=== PATIENT | female | born 1975 | race Caucasian/White ===

== ENCOUNTER 2017-01-12 09:37 | Emergency (ER) | payer OTHER ==
[~2017-01-12] VITALS: Ht 165.1 cm; Wt 60.1 kg
[2017-01-12 10:31] LABS: BASOPHIL COUNT 0.1 K/uL (0-0.1); EOSINOPHIL (%) 4.3 % (0-5); EOSINOPHIL COUNT 0.2 K/uL (0-0.3); HEMATOCRIT 38.1 % (36.0-46.0); IMMATURE GRANULOCYTE (%) 0.2 % (0.0-0.7); INSTRUMENT ABS NEUTROPHIL CT 2.5 K/uL; LYMPHOCYTE COUNT 1.5 K/uL (1.0-2.8); MCH 31.5 PG (29.0-34.0); MCHC 33.3 G/DL (30.0-36.0); MCV 94.5 FL (83-99); MEAN PLAT.VOLUME 9.2 uM^3 (9.5-12.4); MONOCYTE (%) 8.9 % (3-12); MONOCYTE COUNT 0.4 K/uL (0-0.8); NEUTROPHIL (%) 53.4 % (45-76); NEUTROPHIL COUNT 2.5 K/uL (1.8-6.4); PLATELET COUNT 242 K/uL (156-360); RBC DIS.WIDTH-CV 12.2 % (11.8-14.6); RBC DIS.WIDTH-SD 42.5 % (39-53); RED BLOOD COUNT 4.03 M/uL (3.80-5.20); WHITE BLOOD COUNT 4.6 K/uL (4.1-10.2)
[2017-01-12 10:39] LABS: CHLORIDE 107 mEq/L (99-109); POTASSIUM 4.3 mEq/L (3.7-5.4); SODIUM 139 mEq/L (136-147)
[2017-01-12 10:41] LABS: GLUCOSE 94 mg/dL (70-99)
[2017-01-12 10:43] LABS: ANION GAP 8 MEQ/L (2-14); TOTAL BILIRUBIN 0.5 mg/dL (0.0-1.0)
[2017-01-12 10:45] LABS: ALKALINE PHOSPHATASE 56 IU/L (3-129)
[2017-01-12 10:46] LABS: UREA NITROGEN (BUN) 11 mg/dL (9-23)
[2017-01-12 10:52] LABS: GFR ESTIMATE (CALCULATED) > 59 mL/min/
[2017-01-12 11:11] LABS: ADD MIUA? YES; BILIRUBIN NEGATIVE; BLOOD NEGATIVE; COLOR LT YELLOW ((YELLOW)); GLUCOSE (STRIP) NEGATIVE; KETONES NEGATIVE; LEUKOCYTES NEGATIVE; NITRITE NEGATIVE; PROTEIN (STRIP) NEGATIVE; SPECIFIC GRAVITY 1.004 (1.000-1.030); UROBILINOGEN 0.2 MG/DL (0.2-1.0)
[2017-01-12 11:25] LABS: BACTERIA 2+ /HPF; EPITHELIAL CELLS 2+ /HPF; MUCUS TRACE /LPF; UCUL ADDED? YES
[2017-01-12] MEDS ORDERED: CIPRO500 MG PO (13:59)
[2017-01-12 14:08] VITALS: BP 118/75
== END 2017-01-12 14:09 | disposition home or self-care (01) ==
LOC: EME 09:37 → EDBD 09:37 → EME 14:09
PROVIDERS: Emergency Medicine
DX: N39.0 Urinary tract infection, site not specified (principal); R42 Dizziness and giddiness; F17.200 Nicotine dependence, unspecified, uncomplicated; Z88.6 Allergy status to analgesic agent
CPT/HCPCS: 70450; 71010; 80053; 81003; 85025; 87077; 87086; 87186; 93005; 99281; 99285; J1885; J2405; J7030

== ENCOUNTER 2017-05-29 08:21 | Emergency (ER) | payer OTHER ==
[~2017-05-29] VITALS: Ht 165.1 cm; Wt 57.4 kg
[~2017-05-29 08:21] MED LIST: CIPRO500 MG PO
[2017-05-29] MEDS ORDERED: TOPAMAX50 MG PO (08:55)
[2017-05-29 09:05] LABS: HEMATOCRIT 36.8 % (36.0-46.0); HEMOGLOBIN 12.5 G/DL (11.9-15.5); MCH 31.6 PG (29.0-34.0); MCV 92.9 FL (83-99); PLATELET COUNT 223 K/uL (156-360); RBC DIS.WIDTH-CV 12.1 % (11.8-14.6); RED BLOOD COUNT 3.96 M/uL (3.80-5.20); WHITE BLOOD COUNT 5.6 K/uL (4.1-10.2)
[2017-05-29 09:14] LABS: D-DIMER ELISA < 150.00 ng/mLDDU (<230)
[2017-05-29 09:14] LABS: CHLORIDE 105 mEq/L (99-109); POTASSIUM 3.8 mEq/L (3.7-5.4); SODIUM 136 mEq/L (136-147)
[2017-05-29 09:16] LABS: GLUCOSE 101 mg/dL (70-99)
[2017-05-29 09:20] LABS: CREATININE 0.7 mg/dL (0.6-1.3); GFR ESTIMATE (CALCULATED) > 59 mL/min/
[2017-05-29 09:21] LABS: UREA NITROGEN (BUN) 20 mg/dL (9-23)
[2017-05-29 09:26] LABS: TROP-I INTERPRETATION NEGATIVE; TROPONIN-I < 0.01 ng/mL (0.0-0.30)
[2017-05-29] MEDS ORDERED: ULTRAM50 MG PO (12:47)
[2017-05-29 12:53] VITALS: BP 95/60
== END 2017-05-29 13:11 | disposition home or self-care (01) ==
LOC: EME 08:21
PROVIDERS: Emergency Medicine
DX: G62.9 Polyneuropathy, unspecified (principal); R07.89 Other chest pain; F17.200 Nicotine dependence, unspecified, uncomplicated; R56.9 Unspecified convulsions; Z88.5 Allergy status to narcotic agent; Z88.6 Allergy status to analgesic agent; Z90.710 Acquired absence of both cervix and uterus
CPT/HCPCS: 71046; 80048; 84484; 85027; 85379; 93005; 99281; 99284

== ENCOUNTER 2017-06-22 09:49 | Emergency (ER) | payer OTHER ==
[~2017-06-22] VITALS: Ht 165.1 cm; Wt 53.7 kg
[~2017-06-22 09:49] MED LIST changes: +TOPAMAX50 MG PO; +ULTRAM50 MG PO
[2017-06-22 12:49] LABS: HEMATOCRIT 39.5 % (36.0-46.0); HEMOGLOBIN 13.7 G/DL (11.9-15.5); MCH 31.3 PG (29.0-34.0); MCHC 34.7 G/DL (30.0-36.0); MCV 90.2 FL (83-99); RBC DIS.WIDTH-CV 12.3 % (11.8-14.6); RBC DIS.WIDTH-SD 41.1 % (39-53); RED BLOOD COUNT 4.38 M/uL (3.80-5.20); WHITE BLOOD COUNT 3.9 K/uL (4.1-10.2)
[2017-06-22 12:56] LABS: CHLORIDE 103 mEq/L (99-109); POTASSIUM 3.6 mEq/L (3.7-5.4); SODIUM 138 mEq/L (136-147)
[2017-06-22 12:58] LABS: GLUCOSE 79 mg/dL (70-99)
[2017-06-22 13:02] LABS: CREATININE 0.7 mg/dL (0.6-1.3); GFR ESTIMATE (CALCULATED) > 59 mL/min/
[2017-06-22 13:03] LABS: UREA NITROGEN (BUN) 23 mg/dL (9-23)
[2017-06-22 13:55] LABS: PLAT.SUFFICIENCY ADEQUATE
[2017-06-22 13:56] LABS: PLATELET COUNT 136 K/uL (156-360)
[2017-06-22] MEDS ORDERED: PREDNISONE50 MG PO (13:56)
[2017-06-22] MEDS ORDERED: ZITHROMAX Z-PA250 MG PO (13:56)
[2017-06-22] MEDS ORDERED: TOPAMAX50 MG PO (13:56)
[2017-06-22] MEDS ORDERED: ZOFRAN ODT8 MG PO (13:56)
[2017-06-22 14:14] VITALS: BP 129/71
== END 2017-06-22 14:15 | disposition home or self-care (01) ==
LOC: EME 09:49
PROVIDERS: Physician Assistant
DX: B34.9 Viral infection, unspecified (principal); Z76.0 Encounter for issue of repeat prescription; G43.909 Migraine, unspecified, not intractable, without status migrainosus; Z72.0 Tobacco use; Z88.5 Allergy status to narcotic agent; Z88.6 Allergy status to analgesic agent
CPT/HCPCS: 71046; 80048; 85027; 94640; 99281; 99284; J1100; J1885; J7030

== ENCOUNTER 2017-11-15 08:54 | Inpatient (IN) | payer OTHER ==
[~2017-11-15] VITALS: Ht 165.1 cm; Wt 58.1 kg
[~2017-11-15 08:54] MED LIST changes: +PREDNISONE50 MG PO; +ZITHROMAX Z-PA250 MG PO; +ZOFRAN ODT8 MG PO
[2017-11-15 09:27] LABS: HEMATOCRIT 37.3 % (36.0-46.0); HEMOGLOBIN 12.9 G/DL (11.9-15.5); MCH 32.3 PG (29.0-34.0); MCHC 34.6 G/DL (30.0-36.0); MCV 93.3 FL (83-99); PLATELET COUNT 247 K/uL (156-360); RBC DIS.WIDTH-CV 11.9 % (11.8-14.6); RBC DIS.WIDTH-SD 41.3 % (39-53); WHITE BLOOD COUNT 7.7 K/uL (4.1-10.2)
[2017-11-15 09:38] LABS: ALBUMIN 4.6 g/dL (3.2-4.8); CHLORIDE 100 mEq/L (99-109); POTASSIUM 4.2 mEq/L (3.7-5.4); SODIUM 137 mEq/L (136-147)
[2017-11-15 09:40] LABS: GLUCOSE 108 mg/dL (70-99)
[2017-11-15 09:41] LABS: TOTAL PROTEIN 7.2 g/dL (6.4-8.3)
[2017-11-15 09:42] LABS: TOTAL BILIRUBIN 0.7 mg/dL (0.0-1.0)
[2017-11-15 09:44] LABS: ALKALINE PHOSPHATASE 59 IU/L (3-129); CREATININE 0.8 mg/dL (0.6-1.3); GFR ESTIMATE (CALCULATED) > 59 mL/min/
[2017-11-15 09:45] LABS: UREA NITROGEN (BUN) 19 mg/dL (9-23)
[2017-11-15 09:46] LABS: AST (GOT) 10 IU/L (2-34)
[2017-11-15 09:47] LABS: ALT (GPT) 7 IU/L (3-49); LIPASE 5 U/L (1.0-51.0)
[2017-11-15 09:53] LABS: QUANTITATIVE HCG < 4.0 MIU/ML
[2017-11-15 10:27] LABS: APPEARANCE CLEAR ((CLEAR)); BILIRUBIN NEGATIVE; BLOOD NEGATIVE; COLOR YELLOW ((YELLOW)); GLUCOSE (STRIP) NEGATIVE; KETONES NEGATIVE; LEUKOCYTES NEGATIVE; NITRITE NEGATIVE; PROTEIN (STRIP) NEGATIVE; SPECIFIC GRAVITY 1.008 (1.000-1.030); UCUL ADDED? NO; UROBILINOGEN 0.2 MG/DL (0.2-1.0)
[2017-11-15] MEDS ORDERED: MENOPAUSE SUPPO20 MG PO (15:25)
[2017-11-15] MEDS ORDERED: DIVALPROEX SOD250 MG PO (15:25)
[2017-11-15] MEDS ORDERED: B-12 COMPL1000 MCG/1 SC (15:26)
[2017-11-15] MEDS ORDERED: ERGOCALCIF50000 UNIT PO (15:27)
[2017-11-15] MEDS ORDERED: CYANOCOBALAM1000 MCG PO (15:28)
[2017-11-15] MEDS ORDERED: RIZATRIPTAN10 M1 PO (15:28)
[2017-11-15] MEDS ORDERED: ADVIL,NUPRIN,M200 MG PO (15:29)
[2017-11-15 16:25] VITALS: BP 96/53
[2017-11-15 19:14] VITALS: BP 84/53
[2017-11-15 23:20] VITALS: BP 97/54
[2017-11-16 05:45] LABS: HEMATOCRIT 34.7 % (36.0-46.0); HEMOGLOBIN 11.6 G/DL (11.9-15.5); MCH 31.4 PG (29.0-34.0); MCHC 33.4 G/DL (30.0-36.0); PLATELET COUNT 218 K/uL (156-360); RBC DIS.WIDTH-CV 11.9 % (11.8-14.6); RED BLOOD COUNT 3.69 M/uL (3.80-5.20); WHITE BLOOD COUNT 4.6 K/uL (4.1-10.2)
[2017-11-16 06:44] LABS: ALBUMIN 3.7 G/DL (3.2-4.8); ALKALINE PHOSPHATASE 39 IU/L (3-129); ALT (GPT) 6 IU/L (3-49); AST (GOT) 9 IU/L (2-34); CHLORIDE 110 MEQ/L (99-109); CREATININE 0.7 MG/DL (0.6-1.3); GFR ESTIMATE (CALCULATED) > 59 mL/min/; GLUCOSE 96 mg/dL (70-99); SODIUM 141 MEQ/L (136-147); TOTAL BILIRUBIN 0.6 MG/DL (0.0-1.0); TOTAL PROTEIN 5.4 G/DL (6.4-8.3); UREA NITROGEN (BUN) 11 mg/dL (9-23)
[2017-11-16 08:00] VITALS: BP 93/65
[2017-11-16 12:00] VITALS: BP 106/74
[2017-11-16 16:15] VITALS: BP 112/87
[2017-11-16 19:00] VITALS: BP 92/50
[2017-11-17] VITALS (7 sets, daily range): BP systolic 80–107; BP diastolic 43–55
[2017-11-17 05:24] LABS: HEMATOCRIT 34.4 % (36.0-46.0); HEMOGLOBIN 11.3 G/DL (11.9-15.5); MCH 31.2 PG (29.0-34.0); MCHC 32.8 G/DL (30.0-36.0); PLATELET COUNT 225 K/uL (156-360); RBC DIS.WIDTH-CV 11.8 % (11.8-14.6); RBC DIS.WIDTH-SD 41.2 % (39-53); RED BLOOD COUNT 3.62 M/uL (3.80-5.20); WHITE BLOOD COUNT 5.9 K/uL (4.1-10.2)
[2017-11-17 06:39] LABS: CHLORIDE 111 MEQ/L (99-109); CREATININE 0.8 MG/DL (0.6-1.3); GFR ESTIMATE (CALCULATED) > 59 mL/min/; GLUCOSE 94 mg/dL (70-99); POTASSIUM 4.4 MEQ/L (3.7-5.4); SODIUM 141 MEQ/L (136-147); UREA NITROGEN (BUN) 10 mg/dL (9-23)
[2017-11-18 00:23] VITALS: BP 84/50
[2017-11-18 03:54] VITALS: BP 93/60
[2017-11-18 05:35] LABS: HEMATOCRIT 32.1 % (36.0-46.0); HEMOGLOBIN 10.7 G/DL (11.9-15.5); MCH 31.2 PG (29.0-34.0); MCHC 33.3 G/DL (30.0-36.0); MCV 93.6 FL (83-99); PLATELET COUNT 225 K/uL (156-360); RBC DIS.WIDTH-CV 11.7 % (11.8-14.6); RED BLOOD COUNT 3.43 M/uL (3.80-5.20); WHITE BLOOD COUNT 4.9 K/uL (4.1-10.2)
[2017-11-18 05:53] LABS: CHLORIDE 112 MEQ/L (99-109); CREATININE 0.8 MG/DL (0.6-1.3); GFR ESTIMATE (CALCULATED) > 59 mL/min/; GLUCOSE 102 mg/dL (70-99); POTASSIUM 4.1 MEQ/L (3.7-5.4); SODIUM 141 MEQ/L (136-147); UREA NITROGEN (BUN) 11 mg/dL (9-23)
[2017-11-18 11:09] VITALS: BP 104/57
[2017-11-18 16:09] VITALS: BP 81/52
[2017-11-18 19:49] VITALS: BP 92/50
[2017-11-19 00:24] VITALS: BP 86/47
[2017-11-19 04:36] VITALS: BP 83/47
[2017-11-19 06:16] LABS: BASOPHIL (%) 0.8 % (0-1); BASOPHIL COUNT 0.1 K/uL (0-0.1); EOSINOPHIL (%) 4.5 % (0-5); EOSINOPHIL COUNT 0.3 K/uL (0-0.3); HEMATOCRIT 33.5 % (36.0-46.0); HEMOGLOBIN 11.3 G/DL (11.9-15.5); IMMATURE GRANULOCYTE (%) 0.3 % (0.0-0.7); LYMPHOCYTE (%) 23.6 % (15-42); LYMPHOCYTE COUNT 1.4 K/uL (1.0-2.8); MCH 31.2 PG (29.0-34.0); MCHC 33.7 G/DL (30.0-36.0); MCV 92.5 FL (83-99); MONOCYTE (%) 10.3 % (3-12); MONOCYTE COUNT 0.6 K/uL (0-0.8); NEUTROPHIL (%) 60.5 % (45-76); NEUTROPHIL COUNT 3.6 K/uL (1.8-6.4); PLATELET COUNT 246 K/uL (156-360); RBC DIS.WIDTH-CV 11.9 % (11.8-14.6); RBC DIS.WIDTH-SD 40.6 % (39-53); RED BLOOD COUNT 3.62 M/uL (3.80-5.20)
[2017-11-19 06:36] LABS: ALBUMIN 3.5 G/DL (3.2-4.8); CHLORIDE 113 MEQ/L (99-109); CREATININE 0.8 MG/DL (0.6-1.3); GFR ESTIMATE (CALCULATED) > 59 mL/min/; GLUCOSE 106 mg/dL (70-99); PHOSPHORUS 3.5 mg/dL (2.5-4.9); POTASSIUM 3.7 MEQ/L (3.7-5.4); SODIUM 140 MEQ/L (136-147); UREA NITROGEN (BUN) 9 mg/dL (9-23)
[2017-11-19 07:00] VITALS: BP 83/53
[2017-11-19 12:43] VITALS: BP 96/56
[2017-11-19 15:21] VITALS: BP 80/43
[2017-11-19 21:55] VITALS: BP 93/58
[2017-11-20 05:05] LABS: HEMATOCRIT 32.5 % (36.0-46.0); HEMOGLOBIN 11.2 G/DL (11.9-15.5); MCH 32.2 PG (29.0-34.0); MCHC 34.5 G/DL (30.0-36.0); MCV 93.4 FL (83-99); PLATELET COUNT 206 K/uL (156-360); RBC DIS.WIDTH-CV 11.9 % (11.8-14.6); RBC DIS.WIDTH-SD 41.1 % (39-53); RED BLOOD COUNT 3.48 M/uL (3.80-5.20); WHITE BLOOD COUNT 5.6 K/uL (4.1-10.2)
[2017-11-20 05:54] LABS: ALBUMIN 3.5 G/DL (3.2-4.8); CHLORIDE 110 MEQ/L (99-109); CREATININE 0.8 MG/DL (0.6-1.3); GFR ESTIMATE (CALCULATED) > 59 mL/min/; GLUCOSE 96 mg/dL (70-99); PHOSPHORUS 3.5 mg/dL (2.5-4.9); SODIUM 142 MEQ/L (136-147); UREA NITROGEN (BUN) 9 mg/dL (9-23)
[2017-11-20 09:45] VITALS: BP 101/65
[2017-11-20 11:55] VITALS: BP 95/56
[2017-11-20 15:25] VITALS: BP 107/54
[2017-11-20 20:47] VITALS: BP 101/59
[2017-11-20] MEDS ORDERED: POLYETHYLENE GL17 GM PO (21:18)
[2017-11-20] MEDS ORDERED: CIPRO250 MG PO (21:20)
[2017-11-20] MEDS ORDERED: PANTOPRAZOLE SO40 MG PO (21:21)
[2017-11-20 23:55] VITALS: BP 86/47
[2017-11-21 03:15] VITALS: BP 96/61
[2017-11-21 05:09] LABS: HEMATOCRIT 32.8 % (36.0-46.0); HEMOGLOBIN 11.1 G/DL (11.9-15.5); MCH 31.3 PG (29.0-34.0); MCHC 33.8 G/DL (30.0-36.0); MCV 92.4 FL (83-99); PLATELET COUNT 235 K/uL (156-360); RBC DIS.WIDTH-CV 11.9 % (11.8-14.6); RBC DIS.WIDTH-SD 40.7 % (39-53); RED BLOOD COUNT 3.55 M/uL (3.80-5.20); WHITE BLOOD COUNT 5.4 K/uL (4.1-10.2)
[2017-11-21 16:55] VITALS: BP 101/78
== END 2017-11-21 19:15 | disposition home or self-care (01) | DRG 392 ==
LOC: EME 08:54 → 4SOUTH 14:55 → EDOF 14:55 → ENRESERV 15:08 → 4SOUTH 16:21
PROVIDERS: Emergency Medicine; Hospitalist; Internal Medicine Gastroenterology; Physician Assistant Medical
PROC: 0DB68ZX Excision of Stomach, Via Natural or Artificial Opening Endoscopic, Diagnostic (ICD-10-PCS; principal; 2017-11-20)
DX: K57.32 Diverticulitis of large intestine without perforation or abscess without bleeding (principal); K29.60 Other gastritis without bleeding; G62.9 Polyneuropathy, unspecified; G40.A09 Absence epileptic syndrome, not intractable, without status epilepticus; F17.210 Nicotine dependence, cigarettes, uncomplicated; K44.9 Diaphragmatic hernia without obstruction or gangrene; D64.9 Anemia, unspecified; K21.9 Gastro-esophageal reflux disease without esophagitis; Z87.11 Personal history of peptic ulcer disease; Z90.710 Acquired absence of both cervix and uterus
CPT/HCPCS: 74177; 80048; 80053; 80069; 81003; 83690; 84702; 85025; 85027; 88305; 88342 TC; 99281; 99284; C9113; G0378; J0744; J1885; J2250; J2270; J2405; J7030; J7040; J7120; S0028; S0030

== ENCOUNTER 2017-12-11 13:23 | Emergency (ER) | payer OTHER ==
[~2017-12-11] VITALS: Ht 165.1 cm; Wt 57.7 kg
[~2017-12-11 13:23] MED LIST changes: +ADVIL,NUPRIN,M200 MG PO; +B-12 COMPL1000 MCG/1 SC; +CIPRO250 MG PO; +CYANOCOBALAM1000 MCG PO; +DIVALPROEX SOD250 MG PO; +ERGOCALCIF50000 UNIT PO; +MENOPAUSE SUPPO20 MG PO; +PANTOPRAZOLE SO40 MG PO; +POLYETHYLENE GL17 GM PO; +RIZATRIPTAN10 M1 PO
[2017-12-11 14:04] LABS: HEMATOCRIT 36.5 % (36.0-46.0); HEMOGLOBIN 12.8 G/DL (11.9-15.5); MCH 32.7 PG (29.0-34.0); MCHC 35.1 G/DL (30.0-36.0); MCV 93.4 FL (83-99); PLATELET COUNT 242 K/uL (156-360); RBC DIS.WIDTH-CV 12.3 % (11.8-14.6); RBC DIS.WIDTH-SD 42.4 % (39-53); RED BLOOD COUNT 3.91 M/uL (3.80-5.20); WHITE BLOOD COUNT 6.2 K/uL (4.1-10.2)
[2017-12-11 14:16] LABS: ALBUMIN 4.7 g/dL (3.2-4.8); CHLORIDE 107 mEq/L (99-109); POTASSIUM 3.8 mEq/L (3.7-5.4); SODIUM 139 mEq/L (136-147)
[2017-12-11 14:18] LABS: GLUCOSE 104 mg/dL (70-99); TOTAL PROTEIN 7.1 g/dL (6.4-8.3)
[2017-12-11 14:20] LABS: TOTAL BILIRUBIN 0.6 mg/dL (0.0-1.0)
[2017-12-11 14:22] LABS: ALKALINE PHOSPHATASE 52 IU/L (3-129); CREATININE 0.9 mg/dL (0.6-1.3); GFR ESTIMATE (CALCULATED) > 59 mL/min/
[2017-12-11 14:23] LABS: UREA NITROGEN (BUN) 14 mg/dL (9-23)
[2017-12-11 14:24] LABS: AST (GOT) 12 IU/L (2-34)
[2017-12-11 14:25] LABS: ALT (GPT) 10 IU/L (3-49)
[2017-12-11 14:31] LABS: QUANTITATIVE HCG < 4.0 MIU/ML
[2017-12-11 15:28] LABS: APPEARANCE SL.HAZY ((CLEAR)); BILIRUBIN NEGATIVE; BLOOD NEGATIVE; COLOR YELLOW ((YELLOW)); GLUCOSE (STRIP) NEGATIVE; KETONES 5; LEUKOCYTES NEGATIVE; NITRITE NEGATIVE; PROTEIN (STRIP) NEGATIVE; SPECIFIC GRAVITY 1.023 (1.000-1.030)
[2017-12-11 15:39] LABS: BACTERIA NONE SEEN /HPF; EPITHELIAL CELLS 1+ /HPF; MUCUS 1+ /LPF; RED BLOOD CELLS 0-5 /HPF (0-5); UCUL ADDED? NO; WHITE BLOOD CELLS 0-5 /HPF (0-5)
[2017-12-11] MEDS ORDERED: COLACE100 MG PO (17:27)
[2017-12-11] MEDS ORDERED: BENTYL10 MG PO (17:27)
[2017-12-11 21:00] VITALS: BP 95/60
== END 2017-12-11 21:00 | disposition home or self-care (01) ==
LOC: EME 13:23
DX: R10.9 Unspecified abdominal pain (principal); J45.909 Unspecified asthma, uncomplicated; F17.200 Nicotine dependence, unspecified, uncomplicated; Z90.710 Acquired absence of both cervix and uterus; Z86.69 Personal history of other diseases of the nervous system and sense organs; Z88.6 Allergy status to analgesic agent; Z88.5 Allergy status to narcotic agent
CPT/HCPCS: 74177; 76856; 80053; 81003; 84702; 85027; 99281; 99285; J2270; J2405; J3010; J7030

== ENCOUNTER → 2017-12-29 | Outpatient (CLI) | payer OTHER ==
[~2017-12-29] VITALS: Ht 165.1 cm; Wt 57.6 kg
[~2017-12-29] MED LIST changes: +BENTYL10 MG PO; +COLACE100 MG PO
== END | disposition home or self-care (01) ==
LOC: AMB 12:57
DX: K63.5 Polyp of colon (principal); K57.30 Diverticulosis of large intestine without perforation or abscess without bleeding; F17.200 Nicotine dependence, unspecified, uncomplicated; Z88.5 Allergy status to narcotic agent
CPT/HCPCS: 88305